=== PATIENT | male | born 1965 | race Caucasian/White ===

== ENCOUNTER 2021-01-13 06:01 | Emergency (ER) | payer BC ==
--- OUTSIDE RECORDS SUMMARY | 2021-01-13 06:05 | XMS REPORT | Continuity of Care Document ---
:[address] [facility] t Address [address] [place] [address] Care Team Providers Name Role Phone BALDO Attending Clinician Unavailable Payers Payer Name Policy Type Policy Number Effective Date Expiration Date S logan [facility] [id number] 2020 00:00:00 Problems This patient has no known problems. Allergies, Adverse Reactions, Alerts This patient has no known allergies or adverse reactions. Medications This patient has no known medications. Procedures This patient has no known procedures. Encounters Start End Encounter Admission Attending Care Care Encounter Source Date/Time Date/Time Type Type Clinicians Facility Department ID 2020-12-01 Outpatient [facility] [id number] [place] 10:27:13 [facility] 2020-11-14 Outpatient [facility] [id number] [place] 09:58:18 [facility] 2020-12-16 2020-12-16 Education RAFIA Davis [id number] 08:53:53 08:54:10 [facility] [id number] [facility] [id number] SPECIALTY [id number] CLINIC 5 2020-12-09 2020-12-09 Outpatient [id number] [facility] 07:52:00 07:52:00 [facility] 2020-11-23 2020-11-23 Office RAFIA Davis [id number] 10:52:49 12:14:06 Visit [facility] [id number] CLINIC [id number] Results This patient has no known results.
[2021-01-13] MEDS ORDERED: ACETAMINOPHEN 500 MG TAB ONE (06:46)
[2021-01-13 06:54] LABS: Absolute Lymphocytes (CBC) 1.4 K/uL (0.7-4.9); Basophils % 0.3 % (0-1.3); Hematocrit 36.5 % (39.6-49.0); Lymphocytes % 7.2 % (15.3-44.8); MPV 7.8 fL (7.6-11.3); RBC Red Blood Cell Count 4.35 M/uL (4.33-5.43)
[2021-01-13] MEDS ORDERED: NA CHLORIDE 0.9% 1,000 ML ONE (06:57)
[2021-01-13 07:01] LABS: Potassium 4.1 mmol/L (3.5-5.1)
--- NOTE | 2021-01-13 07:31 | RAD REPORT ---
EXAM DESCRIPTION: CT - Spine Lumbar Wo Con - 01/13/2021 7:06 am CLINICAL HISTORY: LOWER BACK PAIN COMPARISON: None. TECHNIQUE: Thin section axial imaging of the lumbar spine was performed. Sagittal and coronal recon struction images were generated and reviewed. All CT scans are performed using dose optimization technique as appropriate and may include automated exposure control or mA/KV adjustment according to patient size. FINDINGS: Lumbar vertebral bodies are normal in height and AP alignment. No compression fracture or pathologic bone process identifiable. Multilevel anterior and lateral endplate spurring changes are p resent. Mild facet joint degenerative changes are present. There are no pars defects identified. No paraspinal soft tissue mass. SI joint degenerative changes are mild. Central canal detail is inherently limited. No gross evidence for a large central canal disc herniati on or mass lesion. Disc bulge and endplate spurring changes cause foraminal stenosis at L3-4, L4-5 an d L5-S1. IMPRESSION: Bilateral foraminal stenosis from disc bulge and endplate spurring involving L3-4, L4-5 and L5-S1. Central canal detail is inherently limited. No gross evidence for large disc herniation or mass. No compression fracture or pathologic bone process. Endplate spurring and facet joint degenerative ch anges are present.
--- NOTE | 2021-01-13 08:01 | RAD REPORT ---
EXAM DESCRIPTION: MRI - Lumbar Spine Wo Con - 01/13/2021 7:39 am CLINICAL HISTORY: incontinence;Lower back pain COMPARISON: No comparisons TECHNIQUE: Sagittal T1-weighted, T2-weighted and T2-STIR weighted sequences were obtained. Axial T1 -weighted and heavily T2-weighted sequenceswere obtained through the lumbar disc levels. FINDINGS: Lumbar bodies are normal in height and alignment. No suspicious marrow signal. No paraspi nal masses. Conus is normal with no clumping or thickening of the cauda equina. T12-L1 level: No significant findings. L1-2 level: No significant findings. L2-3 level: Early disc desiccation and minimal facet degenerative change. No central canal or foramen abnormality. L3-4 level: Disc desiccation with bulging of disc material across the central canal and into each exi t foramen. Bulging disc material causes minimal flattening of the thecal sac. Midline central canal d iameter is 13 mm. Disc bulge and endplate spurring changes are present causing mild to moderate bilat eral foraminal stenosis. Perineural fat is still present. Mild ligamentous thickening and mild facet degenerative change. L4-5 level: Disc desiccation without loss in height. No central canal herniation or significant disc bulge. Foraminal disc bulge and endplate spurring changes are present causing mild to moderate forami nal stenosis. Perineural fat is still present. Facet joint degenerative changes are present. L5-S1 level: Disc is desiccated. No herniation or significant disc bulge in the central canal. Forami nal disc bulge and endplate spurring changes are present causing mild to moderate foraminal stenosis. Facet joint degenerative changes mild. No significant ligamentous thickening changes identifiable. IMPRESSION: No acute vertebral body finding. Degenerative disc bulge and endplate spurring changes at the lower 3 disc levels show [id number] e foraminal stenoses. Findings are slightly worse to the left. L3-4 central canal disc bulge present without central spinal stenosis.
[2021-01-13 08:15] LABS: Urine Blood Negative (Negative); Urine Glucose 2+ (Negative); Urine Protein 2+ (Negative); Urine pH 5.5 (5.0-7.0)
[2021-01-13 08:44] LABS: Urine Bacteria 20-50 /HPF (NONE SEEN); Urine RBC NONE SEEN /HPF (NONE SEEN)
--- NOTE | 2021-01-13 10:56 | RAD REPORT ---
EXAM DESCRIPTION: RAD - Chest Pa And Lat (2 Views) - 01/13/2021 9:20 am CLINICAL HISTORY: COUGH COMPARISON: August 04, 2020 TECHNIQUE: Frontal and lateral views of the chest were obtained. FINDINGS: The lungs are clear of peripheral mass, consolidation or failure finding. Interstitial pat tern is not clearly different from comparison. Heart size is normal and central vasculature is with in normal limits. No pleural effusion or pneumothorax seen. No acute bony finding noted. No aortic abnormality. IMPRESSION: No acute cardiopulmonary process. No significant change from comparison study.
--- NOTE | 2021-01-13 11:07 | EDPHYS ---
Physician Documentation [facility] Name: Napoleon Saez Age: 55 yrs Sex: Male : 1965 Arrival Date: 01/13/2021 Time: 06:05 Bed 28 Private MD: ED Physician Hay Cheng HPI: 01/13 16:27 This 55 yrs old Male presents to ER via Ambulatory with complaints of Low kb Back Pain, Urinary Incontinence. 16:27 The patient presents with pain that is acute, with no known mechanism of injury. The kb symptoms are located in the lumbar spine. The pain does not radiate. The problem was sustained without known cause. Onset: The symptoms/episode began/occurred this morning. Modifying factors: The patient symptoms are alleviated by nothing, the patient symptoms are aggravated by any movement. Associated signs and symptoms: Pertinent positives: bladder incontinence. Severity of symptoms: At their worst the symptoms were moderate, in the emergency department the symptoms are unchanged. The patient has not experienced similar symptoms in the past. The patient has not recently seen a physician. Patient reports bilateral knee and hip pain for the past few days. 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 Yesterday on the way home from work he had an episode of incontinence, then had another episode at 10 PM and 2 AM bladder incontinence. Had a bowel movement at 10 PM knowing continence of bowel. Patient ambulatory with steady gait. States he woke up this morning with pain to lumbar spine. No radiation of pain. Denies any trauma or injury.. Historical: - Allergies: 06:18 No Known Allergies; em - PMHx: 06:18 Hypertensive disorder; Diabetes mellitus; Crohn's disease; em - PSHx: 06:18 None; em - Immunization history:: Adult Immunizations up to date. - Social history:: Smoking status: Patient denies any tobacco usage or history of. ROS: 06:19 Constitutional: Negative for fever, chills, and weight loss. kb 06:19 Abdomen/GI: Negative for abdominal pain, bowel incontinence. 06:19 Back: Positive for pain at rest, pain with movement, of the lumbar area. 06:19 : Positive for bladder incontinence 06:19 All other systems are negative. Exam: 07:55 Constitutional: This is a well developed, well nourished patient who is awake, alert, kb and in no acute distress. Head/Face: Normocephalic, atraumatic. ENT: Moist Mucous membranes Respiratory: Respirations even and unlabored. No increased work of breathing, no retractions or nasal flaring. Abdomen/GI: Soft, non-tender. No distention Skin: Warm, dry with normal turgor. Normal color. MS/ Extremity: Pulses equal, no cyanosis. Neurovascular intact. Full, normal range of motion. Neuro: Awake and alert, GCS 15, oriented to person, place, time, and situation. Moves all extremities. Normal gait. Psych: Awake, alert, with orientation to person, place and time. Behavior, mood, and affect are within normal limits. 07:55 Back: pain, that is moderate, of the lumbar area, ROM is normal, normal spinal alignment noted. Vital Signs: 06:16 BP 171 / 88; Pulse 131; Resp 22; Temp 100.2; Pulse Ox 95% on R/A; Weight 163.29 kg; em Height 5 ft. 11 in. (180.34 cm); 09:36 BP 145 / 74; Pulse 108; Resp 16; Temp 97.7(O); Pulse Ox 96% on R/A; dh3 11:38 BP 157 / 72; Pulse 103; Resp 17; Pulse Ox 96% ; ll1 06:16 Body Mass Index 50.21 (163.29 kg, 180.34 cm) em MDM: 06:19 Patient medically screened. kb 06:25 Data reviewed: vital signs, nurses notes. Data interpreted: Pulse oximetry: on room air kb is 95 %. Interpretation: normal. 16:29 Counseling: I had a detailed discussion with the patient and/or guardian regarding: the kb historical points, exam findings, and any diagnostic results supporting the discharge/admit diagnosis, lab results, radiology results, the need for outpatient follow up, a family practitioner, to return to the emergency department if symptoms worsen or persist or if there are any questions or concerns that arise at home. ED course: Patient recently treated for a leg infection with IV antibiotics at home and to oral antibiotics. Patient is on the last few days of those antibiotics.. 01/13 06:26 Order name: CBC with Diff; Complete Time: 07:10 kb 01/13 06:26 Order name: Basic Metabolic Panel; Complete Time: 07:10 kb 01/13 06:26 Order name: Blood Culture Adult (2) kb 01/13 06:26 Order name: Urine Culture kb 01/13 06:26 Order name: Urine Microscopic Only; Complete Time: 08:45 kb 01/13 06:26 Order name: CT Lumbar Spine Wo Con; Complete Time: 07:31 kb 01/13 06:50 Order name: MRI Lumbar Spine wo Con; Complete Time: 08:05 kb 01/13 07:33 Order name: SARS-COV-2 RT PCR; Complete Time: 07:35 EDMS 01/13 08:15 Order name: Urine Dipstick-Ancillary EDMS 01/13 08:45 Order name: Chest Pa And Lat (2 Views) XRAY; Complete Time: 11:05 kb 01/13 06:26 Order name: IV Start; Complete Time: 06:44 kb 01/13 06:26 Order name: Urine Dipstick-Ancillary (obtain specimen); Complete Time: 08:17 kb 01/13 09:03 Order name: Vital Signs; Complete Time: 11:16 kb Administered Medications: 06:32 Drug: Tylenol 1000 mg Route: PO; em 11:06 Follow up: Response: No adverse reaction ll1 06:43 Drug: NS 0.9% 1000 ml Route: IV; Rate: 1000 ml; Site: left forearm; em 11:05 Follow up: Response: No adverse reaction; IV Status: Completed infusion; IV Intake: ll1 1000ml 11:16 Drug: Rocephin (cefTRIAXone) 1 grams Route: IV; Rate: calculated rate; Site: left ll1 forearm; 11:40 Follow up: Response: No adverse reaction; IV Status: Completed infusion; IV Intake: [id number] Disposition Summary: 01/13/21 11:06 Discharge Ordered Location: Home kb Condition: Stable kb Diagnosis - Low back pain kb - UTI/ Urinary tract infection, site not specified kb Followup: kb - With: Emergency Department - When: As needed - Reason: Worsening of condition Followup: kb - With: Private Physician - When: 2 - 3 days - Reason: Recheck today's complaints, Continuance of care, Re-evaluation by your physician Discharge Instructions: - Discharge Summary Sheet kb - Musculoskeletal Pain kb - Urinary Tract Infection, Adult, [id number] kb Forms: - Medication Reconciliation Form kb - Thank You Letter kb - Antibiotic Education kb - Prescription Opioid Use kb Prescriptions: - Cipro 500 mg Oral Tablet - take 1 tablet by ORAL route every 12 hours for 7 days; 14 tablet; Refills: 0, kb Product Selection Permitted - Diclofenac Sodium 75 mg Oral tablet,delayed release (DR/EC) - take 1 tablet by ORAL route 2 times per day As needed; 30 tablet; Refills: 0, kb Product Selection Permitted Addendum: 01/15/2021 09:10 Co-signature as Attending Physician, Hay Cheng I agree with the assessment and plan s p3 of care. Signatures: Dispatcher [employer] [facility] Camille Fish, SOLUTION ENGINEER-C SOLUTION ENGINEER-Israel Oshea, RN RN Bobby Arellano RN RN ll1 Hay Cheng sp3 Corrections: (The following items were deleted from the chart) 01/13 06:41 06:27 CORONAVIRUS+[email or web address] ordered. [facility]
--- NOTE | 2021-01-13 11:07 | ER ---
Nurse's Notes [facility] Name: Napoleon Saez Age: 55 yrs Sex: Male : 1965 Arrival Date: 01/13/2021 Time: 06:05 Bed 28 Private MD: Diagnosis: Low back pain;UTI/ Urinary tract infection, site not specified Presentation: 01/13 06:16 Chief complaint: Patient states: woke up with back pain at 0300, hip and thierry. knee em pain, denies injury, also lost control of bladder 3 times. Coronavirus screen: Client denies travel out of the [place] in the last 14 days. Ebola Screen: Patient negative for fever greater than or equal to 101.5 degrees Fahrenheit, and additional compatible Ebola Virus Disease symptoms Patient denies exposure to infectious person. Patient denies travel to an Ebola-affected area in the 21 days before illness onset. No symptoms or risks identified at this time. Initial Sepsis Screen: Does the patient meet any 2 criteria? RR > 20 per min. HR > 90 bpm. No. Patient's initial sepsis screen is negative. Does the patient have a suspected source of infection? No. Patient's initial sepsis screen is negative. Risk Assessment: Do you want to hurt yourself or someone else? Patient reports no desire to harm self or others. Onset of symptoms was January 13, 2021. 06:16 Method Of Arrival: Ambulatory em 06:16 Acuity: MONICA 3 em 06:19 Acuity: MONICA 2 em Historical: - Allergies: 06:18 No Known Allergies; em - PMHx: 06:18 Hypertensive disorder; Diabetes mellitus; Crohn's disease; em - PSHx: 06:18 None; em - Immunization history:: Adult Immunizations up to date. - Social history:: Smoking status: Patient denies any tobacco usage or history of. Screenin:39 Abuse screen: Denies threats or abuse. Nutritional screening: No deficits noted. ll1 Tuberculosis screening: No symptoms or risk factors identified. Fall Risk IV access (20 points). Gait- Weak (10 pts.). Total Bocanegra Fall Scale indicates Low Risk Score (25-44 pts). Fall prevention measures have been instituted. Side Rails Up X 2 Frequent Obs/Assesments occuring As available Patient and Family Educated on Fall Prevention Program and strategies. Assessment: 11:20 General: Appears in no apparent distress. Behavior is calm, cooperative, appropriate ll1 for age. Pain: Complains of pain in lumbar area Quality of pain is described as aching, Aggravated by increased activity. Neuro: No deficits noted. Cardiovascular: No deficits noted. Respiratory: No deficits noted. : Reports burning with urination, incontinence, urgency. Musculoskeletal: Circulation, motion, and sensation intact. Capillary refill < 3 seconds, Range of motion: intact in all extremities, Reports pain in lumbar area. Vital Signs: 06:16 BP 171 / 88; Pulse 131; Resp 22; Temp 100.2; Pulse Ox 95% on R/A; Weight 163.29 kg; em Height 5 ft. 11 in. (180.34 cm); 09:36 BP 145 / 74; Pulse 108; Resp 16; Temp 97.7(O); Pulse Ox 96% on R/A; dh3 11:38 BP 157 / 72; Pulse 103; Resp 17; Pulse Ox 96% ; ll1 06:16 Body Mass Index 50.21 (163.29 kg, 180.34 cm) em ED Course: 06:05 Patient arrived in ED. wm 06:11 [facility]aimlle [facility]C [facility] kb 06:11 Hay Cheng is Attending Physician. kb 06:18 Triage completed. em 06:18 Arm band placed on. em 07:06 CT Lumbar Spine Wo Con In Process Unspecified. EDMS 07:38 MRI Lumbar Spine wo Con In Process Unspecified. EDMS 09:19 Chest Pa And Lat (2 Views) XRAY In Process Unspecified. EDMS 11:05 Bobby Figueredo, RN is Primary Nurse. ll1 11:20 Patient has correct armband on for positive identification. Bed in low position. Call ll1 light in reach. Side rails up X2. Pulse ox on. NIBP on. 11:39 No provider procedures requiring assistance completed. IV discontinued, intact, ll1 bleeding controlled, No redness/swelling at site. Pressure dressing applied. Administered Medications: 06:32 Drug: Tylenol 1000 mg Route: PO; em 11:06 Follow up: Response: No adverse reaction ll1 06:43 Drug: NS 0.9% 1000 ml Route: IV; Rate: 1000 ml; Site: left forearm; em 11:05 Follow up: Response: No adverse reaction; IV Status: Completed infusion; IV Intake: ll1 1000ml 11:16 Drug: Rocephin (cefTRIAXone) 1 grams Route: IV; Rate: calculated rate; Site: left ll1 forearm; 11:40 Follow up: Response: No adverse reaction; IV Status: Completed infusion; IV Intake: [id number] Intake: 11:05 IV: 1000ml; Total: 1000ml. ll1 11:40 IV: 20ml; Total: 1020ml. 1 Outcome: 11:06 Discharge ordered by . santosh 11:40 Discharged to home ambulatory. 1 11:40 Condition: stable 11:40 Discharge instructions given to patient, Instructed on discharge instructions, follow up and referral plans. medication usage, Demonstrated understanding of instructions, follow-up care, medications, Prescriptions given X 1. 11:41 Patient left the ED. 1 Signatures: Dispatcher [employer] EDCamille Esquivel, LISA-C TECHNOLOGY PROGRAM MANAGER-Israel Oshea RN RN em Herrera, Deanna formerly [facility] Bobby Figueredo RN RN [facility] Shruthi Quintero
[2021-01-13] MEDS ORDERED: CEFTRIAXONE/SWI 1gm 1 GM/10 ML SYR ONE (11:32)
[2021-01-13 11:48] VITALS: TEMP 97.7; O2SAT 96
[2021-01-13 11:49] VITALS: BP 157/72
== END 2021-01-13 11:41 | disposition home or self-care (01) ==
LOC: ER 06:01
DX: N39.0 Urinary tract infection, site not specified (principal); I10 Essential (primary) hypertension; E11.9 Type 2 diabetes mellitus without complications; Z20.822 Contact with and (suspected) exposure to COVID-19
CPT/HCPCS: 96365; 96361; 87040 ×2; 87088; 85025; 87086; 80048; 36415; 87077; 87186; 72131; 71046; 72148; 99284; U0003; J0696; J7030; 81003; 81015

== ENCOUNTER 2021-02-21 19:33 | Emergency (ER) | payer BC ==
[2021-02-21 20:46] LABS: Absolute Lymphocytes (CBC) 1.7 K/uL (0.7-4.9); Basophils % 0.6 % (0-1.3); Hematocrit 36.3 % (39.6-49.0); Lymphocytes % 15.3 % (15.3-44.8); MPV 8.1 fL (7.6-11.3); RBC Red Blood Cell Count 4.31 M/uL (4.33-5.43)
[2021-02-21 20:50] LABS: Protime INR 1.08
[2021-02-21 21:03] LABS: ALT/SGPT 34 U/L (12-78); AST/SGOT 15 U/L (15-37); Albumin 3.7 g/dL (3.4-5.0); Alkaline Phosphatase 71 U/L (45-117); BUN Blood Urea Nitrogen 25 mg/dL (7-18); Bicarbonate 29 mmol/L (21-32); Bilirubin Direct < 0.1 mg/dL (0-0.2); Bilirubin Total 0.3 mg/dL (0.2-1.0); Glucose Level 224 mg/dL (74-106); Potassium 4.1 mmol/L (3.5-5.1); Protein, Total 7.2 g/dL (6.4-8.2); Sodium Level 138 mmol/L (136-145)
[2021-02-21] MEDS ORDERED: ACETAMINOPHEN 500 MG TAB ONE (21:19)
--- NOTE | 2021-02-21 21:37 | RAD REPORT ---
EXAM DESCRIPTION: Ramon Macario Left02/21/2021 9:28 pm CLINICAL HISTORY: Left leg pain FINDINGS: No fracture is seen. Soft tissue swelling. No bony destructive lesions seen
--- NOTE | 2021-02-21 21:56 | RAD REPORT ---
EXAM DESCRIPTION: USExtremity Venous Uni Ltd02/21/2021 9:44 pm CLINICAL HISTORY: left leg pain . COMPARISON: December 2020 FINDINGS: Left common femoral, superficial femoral, popliteal and posterior tibial veins are compre ssible and demonstrate augmentation. Doppler demonstrates good flow. IMPRESSION: No evidence of deep venous thrombosis involving the left lower extremity.
--- NOTE | 2021-02-21 22:11 | EDPHYS ---
Physician Documentation [facility] Name: Napoleon Saez Age: 55 yrs Sex: Male : 1965 Arrival Date: 02/21/2021 Time: 19:38 Bed 9 Private MD: JLUIS Physician Magdi Kenny HPI: 02/21 20:20 This 55 yrs old Male presents to ER via Ambulatory with complaints of Leg mh7 Pain. 20:20 The patient presents with pain, that is acute. The complaints affect the left leg. mh7 Context: The problem was sustained at work, resulted from an unknown cause, the patient can fully bear weight, the patient is able to ambulate, without difficulty, Problem is a result from a previous injury: No. Onset: The symptoms/episode began/occurred today. Modifying factors: The symptoms are alleviated by nothing. the symptoms are aggravated by nothing. Associated signs and symptoms: Pertinent negatives calf tenderness, fever, nausea, numbness, rash, swelling, tingling, vomiting, warmth, weakness. Treatment prior to arrival includes: no previous treatment. Severity of symptoms: At their worst the symptoms were moderate, earlier today, in the emergency department the symptoms have improved, moderately. Patient reports pain is started in her left lower leg earlier today. He denies any injuries. He reports being treated for infection in the leg that was completed about a month ago. He has not noted any change in the skin to the area. Denies any fever, cough, chest pain, abdominal pain, shortness of breath, nausea, vomiting, diarrhea, dizziness, numbness/tingling, or weakness.. Historical: - Allergies: 19:51 No Known Allergies; ms4 - PMHx: 19:51 Crohn's Disease; diabetes mellitus; Hypertensive disorder; ms4 - Immunization history:: Adult Immunizations up to date, Client reports receiving the 2nd dose of the Covid vaccine. - Social history:: Smoking status: Patient denies any tobacco usage or history of. ROS: 20:20 Constitutional: Negative for fever, chills, and weight loss, Eyes: Negative for injury, mh7 pain, redness, and discharge, ENT: Negative for injury, pain, and discharge, Neck: Negative for injury, pain, and swelling, Cardiovascular: Negative for chest pain, palpitations, and edema, Respiratory: Negative for shortness of breath, cough, wheezing, and pleuritic chest pain, Abdomen/GI: Negative for abdominal pain, nausea, vomiting, diarrhea, and constipation, Back: Negative for injury and pain, : Negative for injury, bleeding, discharge, and swelling, Skin: Negative for injury, rash, and discoloration, Neuro: Negative for headache, weakness, numbness, tingling, and seizure, Psych: Negative for depression, anxiety, suicide ideation, homicidal ideation, and hallucinations, Allergy/Immunology: Negative for hives, rash, and allergies, Endocrine: Negative for neck swelling, polydipsia, polyuria, polyphagia, and marked weight changes. Exam: 20:20 Constitutional: This is a well developed, well nourished patient who is awake, alert, mh7 and in no acute distress. Head/Face: Normocephalic, atraumatic. Eyes: Pupils equal round and reactive to light, extra-ocular motions intact. Lids and lashes normal. Conjunctiva and sclera are non-icteric and not injected. Cornea within normal limits. Periorbital areas with no swelling, redness, or edema. Neck: Trachea midline, no thyromegaly or masses palpated, and no cervical lymphadenopathy. Supple, full range of motion without nuchal rigidity, or vertebral point tenderness. No Meningismus. Chest/axilla: Normal chest wall appearance and motion. Nontender with no deformity. No lesions are appreciated. Cardiovascular: Regular rate and rhythm with a normal S1 and S2. No gallops, murmurs, or rubs. Normal PMI, no JVD. No pulse deficits. Respiratory: Lungs have equal breath sounds bilaterally, clear to auscultation and percussion. No rales, rhonchi or wheezes noted. No increased work of breathing, no retractions or nasal flaring. Abdomen/GI: Soft, non-tender, with normal bowel sounds. No distension or tympany. No guarding or rebound. No evidence of tenderness throughout. Back: No spinal tenderness. No costovertebral tenderness. Full range of motion. Neuro: Awake and alert, GCS 15, oriented to person, place, time, and situation. Cranial nerves II-XII grossly intact. Motor strength 5/5 in all extremities. Sensory grossly intact. Cerebellar exam normal. Normal gait. Psych: Awake, alert, with orientation to person, place and time. Behavior, mood, and affect are within normal limits. 20:20 Musculoskeletal/extremity: Extremities: noted in the Anterior left lower leg: pain, mh7 Mild, healing wound without erythema, swelling, discharge, induration, warmth, ROM: intact in all extremities, Circulation is intact in all extremities. Sensation intact. Compartment Syndrome exam of affected extremity: is normal. no numbness, no tingling, no sensation deficit, no palor, no weak pulses, Joints: All joints appear normal with full range of motion. Weight bearing: able to fully bear weight, without difficulty, Tendon exam: specific tendon testing normal through active and passive range of motion 20:20 Skin: Wound recheck: Healing wound anterior left lower leg without erythema, mh7 tenderness, swelling, induration, discharge, warmth. Vital Signs: 19:48 BP 162 / 105; Pulse 109; Resp 20; Temp 98.7(O); Pulse Ox 97% on R/A; Weight 163.29 kg; ms4 Height 5 ft. 11 in. (180.34 cm) (R); Pain 3/10; 19:48 Body Mass Index 50.21 (163.29 kg, 180.34 cm) ms4 MDM: 22:09 Differential diagnosis: closed fracture, contusion, abrasion, tendonitis, Cellulitis. mh7 Data reviewed: vital signs, nurses notes, EMS record, old medical records, lab test result(s), CBC, electrolytes, radiologic studies, plain films, ultrasound. Data interpreted: Pulse oximetry: on room air is 97 %. Interpretation: normal. Counseling: I had a detailed discussion with the patient and/or guardian regarding: the historical points, exam findings, and any diagnostic results supporting the discharge/admit diagnosis, the presence of at least one elevated blood pressure reading (>120/80) during this emergency department visit, lab results, radiology results, the need for outpatient follow up, to return to the emergency department if symptoms worsen or persist or if there are any questions or concerns that arise at home. Response to treatment: the patient's symptoms have resolved after treatment, the patient's blood pressure is in an acceptable range, mental status has returned to baseline, the patient no longer shows bradycardia, the patient is not short of breath, the patient is not tachycardic, the patient's pain is gone, the patient's temperature has normalized. 22:11 Patient medically screened. [facility] 02/21 20:28 Order name: CBC with Diff; Complete Time: 21:17 [facility] 02/21 20:28 Order name: BMP; Complete Time: 21:17 [facility] 02/21 20:28 Order name: LFT's; Complete Time: 21:17 [facility] 02/21 20:28 Order name: Protime (+inr); Complete Time: 21:17 [facility] 02/21 20:28 Order name: Ptt, Activated; Complete Time: 21:17 [facility] 02/21 20:28 Order name: US Extremity Venous Unilateral Ltd; Complete Time: 21:58 [facility] 02/21 20:28 Order name: Saline Lock; Complete Time: 20:39 [facility] 02/21 20:43 Order name: Tib Fib Left XRAY; Complete Time: 21:58 [facility] Administered Medications: 20:55 Drug: Tylenol 1000 mg Route: PO; ms4 Disposition Summary: 02/21/21 22:11 Discharge Ordered Location: Home [facility] Problem: new [facility] Symptoms: have improved [facility] Condition: Stable [facility] Diagnosis - Pain in left lower leg [facility] Followup: [facility] - With: Private Physician - When: 1 - 2 days - Reason: Worsening of condition, Recheck today's complaints, Continuance of care, Re-evaluation by your physician Followup: [facility] - With: Emergency Department - When: 1 - 2 days - Reason: Worsening of condition Discharge Instructions: - Discharge Summary Sheet [facility] - Musculoskeletal Pain [facility] Forms: - Medication Reconciliation Form [facility] - Thank You Letter [facility] - Antibiotic Education [facility] - Prescription Opioid Use [facility] Signatures: Dispatcher [employer] Magdi Jung MD MD [facility] Felicitas Mendez, RN RN ms4
--- NOTE | 2021-02-21 22:11 | ER ---
Nurse's Notes [facility] Name: Napoleon Saez Age: 55 yrs Sex: Male : 1965 Arrival Date: 02/21/2021 Time: 19:38 Bed 9 Private MD: Diagnosis: Pain in left lower leg Presentation: 02/21 19:48 Chief complaint: Patient states: patient presents to the ED c/o left leg pain. patient ms4 reports he had a recent leg infection and was placed on multiple antibiotics and had to have the wound debrided. patient is here tonight due to increased pain in the area. LLE appears to be healing. patient denies fever or chills. Coronavirus screen: Vaccine status: Patient reports receiving the 2nd dose of the covid vaccine. Client denies travel out of the [place] in the last 14 days. At this time, the client does not indicate any symptoms associated with coronavirus-19. Ebola Screen: Patient negative for fever greater than or equal to 101.5 degrees Fahrenheit, and additional compatible Ebola Virus Disease symptoms Patient denies exposure to infectious person. Patient denies travel to an Ebola-affected area in the 21 days before illness onset. No symptoms or risks identified at this time. Initial Sepsis Screen: Does the patient meet any 2 criteria? HR > 90 bpm. Does the patient have a suspected source of infection? Yes: Skin breakdown/wound If YES to both, name of provider notified: Magdi Kenny MD. Risk Assessment: Do you want to hurt yourself or someone else? Patient reports no desire to harm self or others. Onset of symptoms was February 21, 2021. 19:48 Method Of Arrival: Ambulatory ms4 19:48 Acuity: MONICA 3 ms4 Triage Assessment: 19:52 General: Appears in no apparent distress. Behavior is calm, cooperative, appropriate ms4 for age. Pain: Complains of pain in left leg. Historical: - Allergies: 19:51 No Known Allergies; ms4 - PMHx: 19:51 Crohn's Disease; diabetes mellitus; Hypertensive disorder; ms4 - Immunization history:: Adult Immunizations up to date, Client reports receiving the 2nd dose of the Covid vaccine. - Social history:: Smoking status: Patient denies any tobacco usage or history of. Screenin:57 Abuse screen: Denies threats or abuse. Denies injuries from another. Abuse screen: ms4 Denies injuries from another. Abuse screen: Denies injuries from another. Nutritional screening: No deficits noted. Tuberculosis screening: No symptoms or risk factors identified. Fall Risk None identified. Assessment: 19:56 Reassessment: Patient appears in no apparent distress at this time. No changes from ms4 previously documented assessment. Patient and/or family updated on plan of care and expected duration. Pain level reassessed. Patient is alert, oriented x 3, equal unlabored respirations, skin warm/dry/pink. General: Appears in no apparent distress. Behavior is calm, cooperative, appropriate for age. Pain: Complains of pain in left leg. Neuro: No deficits noted. Cardiovascular: No deficits noted. Respiratory: No deficits noted. Musculoskeletal: Swelling present in right leg and left leg Reports pain in left leg Pain is 3 out of 10 on a pain scale. 21:32 Reassessment: ultrasound at bedside. ms4 Vital Signs: 19:48 BP 162 / 105; Pulse 109; Resp 20; Temp 98.7(O); Pulse Ox 97% on R/A; Weight 163.29 kg; ms4 Height 5 ft. 11 in. (180.34 cm) (R); Pain 3/10; 19:48 Body Mass Index 50.21 (163.29 kg, 180.34 cm) ms4 ED Course: 19:38 Patient arrived in ED. bp1 19:51 Triage completed. ms4 19:52 Arm band placed on right wrist. ms4 19:57 No provider procedures requiring assistance completed. ms4 19:59 Gwendolyn Woodson, JULIÁN is Primary Nurse. cc4 20:12 Magdi Kenny MD is Attending Physician. mh7 20:40 Patient has correct armband on for positive identification. ms4 20:40 Inserted saline lock: 20 gauge in right hand, using aseptic technique. Blood collected. ms4 21:28 Tib Fib Left XRAY In Process Unspecified. EDMS 21:44 US Extremity Venous Unilateral Ltd In Process Unspecified. EDMS 22:18 IV discontinued, intact, bleeding controlled. ms4 Administered Medications: 20:55 Drug: Tylenol 1000 mg Route: PO; ms4 Outcome: 22:11 Discharge ordered by . mh7 22:18 Discharged to home ambulatory. ms4 22:18 Condition: stable 22:18 Discharge instructions given to patient, Instructed on discharge instructions, follow up and referral plans. Demonstrated understanding of instructions, follow-up care. 22:19 Patient left the ED. ms4 Signatures: Dispatcher [employer] EDMS Zita Pena Maurice, MD MD mh7 Felicitas Mendez RN RN ms4 Gwendolyn Woodson RN RN cc4
[2021-02-21 22:26] VITALS: BP 162/105; TEMP 98.7; O2SAT 97
== END 2021-02-21 22:19 | disposition home or self-care (01) ==
LOC: ER 19:33
DX: M79.662 Pain in left lower leg (principal); I10 Essential (primary) hypertension
CPT/HCPCS: 36415; 80048; 80076; 85025; 85610; 85730; 93971; 99284

== ENCOUNTER 2023-04-04 09:35 | Emergency (ER) | payer BC ==
--- OUTSIDE RECORDS SUMMARY | 2023-04-04 09:38 | XMS REPORT | Continuity of Care Document ---
:1965 Author Organization [facility] t Address [address] [place] [address] [place] [id number] Care Team Providers Name Role Phone ESTEBAN LEWIS Primary Care Physician Unavailable SYLVIA HILL Attending Clinician Unavailable Sylvia Miller Attending Clinician Jada Monae MD Attending Clinician JADA MONAE Attending Clinician Unavailable Doctor Unassigned, [place] Attending Clinician Unavailable Karri Bland MD Attending Clinician KARRI BLAND Attending Clinician Unavailable ERIC AGUDELO Attending Clinician Unavailable JADA MONAE Admitting Clinician Unavailable Payers Payer Name Policy Type Policy Number Effective Date Expiration Date S ource Problems Condition Condition Condition Status Onset Resolution Last Treating Co mments Source Name Details Category Date Date Treatment Clinician Date Chronic Chronic Disease Active Univers venous venous 6-30 ity of [place] [facility] Bilateral Bilateral Disease Active Uni vers leg leg 6-29 ity of numbness numbness 00:00: [place] [facility] Diabetes Diabetes Disease Active 2008-05 Overview: Un jozef 1-13 Formattin ity of 00:00: g of this note Medical might be Branch different from the original. Dx 2004 Essential Essential Disease Active 2008-05 Overview: Univers hypertensi hypertensi 1-13 Formattin ity of on on 00:00: g of this note Medical might be Branch different from the original. Dx 2005ICD-1 0 Obesity Obesity Disease Active 2008-05 Univers 1-13 ity of 00:00: [place] [address] Medical Branch Allergies, Adverse Reactions, Alerts Allergy Allergy Status Severity Reaction(s) Onset Inactive Treating Comm ents Source Name Type Date Date Clinician NO KNOWN Drug Active Univers ALLERGIE Class ity of S [facility] Social History Social Habit Start Date Stop Date Quantity Comments Source Gender identity [facility] [place] [facility] [place] [facility] Alcohol intake 2023-03-07 2023-03-07 Lifetime University of 00:00:00 00:00:00 non-drinker [facility] (finding) [place] Tobacco use and 2023-02-18 2023-02-18 Smokeless Universit y of exposure 00:00:00 00:00:00 tobacco non-user [facility] dical [place] History of Social 2023-02-18 2023-02-18 Univers ity of function 00:00:00 00:00:00 [facility] Sex [birth year] Universit y of 00:00:00 00:00:00 [facility] Smoking Status Start Date Stop Date Source Tobacco smoking consumption Univ [facility] Never smoked tobacco [facility] Medications Ordered Filled Start Stop Current Ordering Indication Dosage Frequency Signature Comments Components Source Medication Medication Date Date Medication? Clinician (SIG) Name Name ciprofloxac 2022-05- Yes [id number] 500mg Take 1 Univers in HCl 0-02 10-13 tablet by ity of (CIPRO) 500 [place] 04[place] tablet 00 :00 every 12 Medica l (twelve) Branch hours for 10 days. ciprofloxac 2022-05- Yes [id number] 500mg Take 1 Univers in HCl 0-02 10-13 tablet by ity of (CIPRO) 500 00:00: 04:59 [place] tablet 00 :00 every 12 Medica l (twelve) Branch hours for 10 days. ciprofloxac 2022-05- Yes [id number] 500mg Take 1 Univers in HCl 0-02 10-13 tablet by ity of (CIPRO) 500 00:00: 04:59 [place] mg tablet 00 :00 every 12 Medica l (twelve) Branch hours for 10 days. ciprofloxac 2022-05- Yes [id number] 500mg Take 1 Univers in HCl 0-02 10-13 tablet by ity of (CIPRO) 500 00:00: 04:59 [place] mg tablet 00 :00 every 12 Medica l (twelve) Branch hours for 10 days. lisinopriL 0 Yes Take by Univ ers 40 mg 9-25 mouth. ity of tablet 16:05: [address] lisinopriL 0 Yes Take by Univ ers 40 mg 9-25 mouth. ity of tablet 16:05: [address] lisinopriL 0 Yes Take by Univ ers 40 mg 9-25 mouth. ity of tablet 16:05: [address] lisinopriL 0 Yes Take by Univ ers 40 mg 9-25 mouth. ity of tablet 16:05: [address] lisinopriL Yes Take by [facility] ers 40 mg 9-25 mouth. ity of tablet 16:05: [address] triamcinolo 0 Yes [id number] Apply to Univers ne 9-25 area(s) 2 ity of acetonide 00:00: (two) [place] 0.1 % 00 times Medical ointment daily. Branch mupirocin 2 0 Yes [id number] Apply to Univers % ointment 9-25 area(s) 2 ity of 00:00: (two) [place] 00 times Medical daily. Branch furosemide 0 Yes [id number] 20mg Take 1 U nivers (LASIX) 20 9-25 tablet by ity of mg tablet 00:00: [place] 00 the Medical morning. Branch triamcinolo 0 Yes [id number] Apply to Univers ne 9-25 area(s) 2 ity of acetonide 00:00: (two) [place] 0.1 % 00 times Medical ointment daily. Branch mupirocin 2 0 Yes [id number] Apply to Univers % ointment 9-25 area(s) 2 ity of 00:00: (two) [place] 00 times Medical daily. Branch furosemide 0 Yes [id number] 20mg Take 1 U nivers (LASIX) 20 9-25 tablet by ity of mg tablet 00:00: [place] 00 the Medical morning. Branch triamcinolo 2022-0 Yes [id number] Apply to Univers ne 9-25 area(s) 2 ity of acetonide 00:00: (two) [place] 0.1 % 00 times Medical ointment daily. Branch mupirocin 2 2022-0 Yes [id number] Apply to Univers % ointment 9-25 area(s) 2 ity of 00:00: (two) [place] 00 times Medical daily. Branch furosemide 2022-0 Yes [id number] 20mg Take 1 U nivers (LASIX) 20 9-25 tablet by ity of mg tablet 00:00: [place] the Medical morning. Branch triamcinolo 2022-0 Yes [id number] Apply to Univers ne 9-25 area(s) 2 ity of acetonide 00:00: (two) [place] 0.1 % 00 times Medical ointment daily. Branch mupirocin 2 2022-0 Yes [id number] Apply to Univers % ointment 9-25 area(s) 2 ity of 00:00: (two) [place] 00 times Medical daily. Branch furosemide 2022-0 Yes [id number] 20mg Take 1 U nivers (LASIX) 20 9-25 tablet by ity of mg tablet 00:00: [place] the Medical morning. Branch triamcinolo 2022-0 Yes [id number] Apply to Univers ne 9-25 area(s) 2 ity of acetonide 00:00: (two) [place] 0.1 % 00 times Medical ointment daily. Branch mupirocin 2 2022-0 Yes [id number] Apply to Univers % ointment 9-25 area(s) 2 ity of 00:00: (two) [place] 00 times Medical daily. Branch furosemide 2022-0 Yes [id number] 20mg Take 1 U nivers (LASIX) 20 9-25 tablet by ity of mg tablet 00:00: [place] the Medical morning. Branch lisinopriL 2022-0 Yes 40mg Take 1 Unive rs 40 mg 9-10 tablet by ity of tablet 00:00: mouth in [place] 00 the Medical morning. Branch amLODIPine 2022-0 Yes TAKE 1 Unive rs 10 mg 9-10 TABLET BY ity of tablet 00:00: MOUTH [place] 00 EVERY DAY Medical FOR 90 Branch DAYS lisinopriL 3-0 Yes 40mg Take 1 Unive rs 40 mg 9-10 tablet by ity of tablet 00:00: mouth in [place] 00 the Medical morning. Branch amLODIPine 2022-0 Yes TAKE 1 Unive rs 10 mg 9-10 TABLET BY ity of tablet 00:00: MOUTH [place] 00 EVERY DAY Medical FOR 90 Branch DAYS lisinopriL 2022-0 Yes 40mg Take 1 Unive rs 40 mg 9-10 tablet by ity of tablet 00:00: mouth in [place] 00 the Medical morning. Branch amLODIPine 2022-0 Yes TAKE 1 Unive rs 10 mg 9-10 TABLET BY ity of tablet 00:00: MOUTH [place] 00 EVERY DAY Medical FOR 90 Branch DAYS lisinopriL 2022-0 Yes 40mg Take 1 Unive rs 40 mg 9-10 tablet by ity of tablet 00:00: mouth in [place] 00 the Medical morning. Branch amLODIPine 2022-0 Yes TAKE 1 Unive rs 10 mg 9-10 TABLET BY ity of tablet 00:00: MOUTH [place] 00 EVERY DAY Medical FOR 90 Branch DAYS lisinopriL 2022-0 Yes 40mg Take 1 Unive rs 40 mg 9-10 tablet by ity of tablet 00:00: mouth in [place] 00 the Medical morning. Branch amLODIPine 2022-0 Yes TAKE 1 Unive rs 10 mg 9-10 TABLET BY ity of tablet 00:00: MOUTH [place] 00 EVERY DAY Medical FOR 90 Branch DAYS JANUMET 0 Yes TAKE 1 Univers 50-1,000 mg 9-02 TABLET BY ity of per tablet 00:00: MOUTH [place] 00 TWICE A Medical DAY WITH Branch MEALS FOR 90 DAYS JANUMET 0 Yes TAKE 1 Univers 50-1,000 mg 9-02 TABLET BY ity of per tablet 00:00: MOUTH [place] 00 TWICE A Medical DAY WITH Branch MEALS FOR 90 DAYS JANUMET 0 Yes TAKE 1 Univers 50-1,000 mg 9-02 TABLET BY ity of per tablet 00:00: MOUTH [place] 00 TWICE A Medical DAY WITH Branch MEALS FOR 90 DAYS JANUMET 0 Yes TAKE 1 Univers 50-1,000 mg 9-02 TABLET BY ity of per tablet 00:00: MOUTH [place] 00 TWICE A Medical DAY WITH Branch MEALS FOR 90 DAYS JANUMET 0 Yes TAKE 1 Univers 50-1,000 mg 9-02 TABLET BY ity of per tablet 00:00: MOUTH [place] 00 TWICE A Medical DAY WITH Branch MEALS FOR 90 DAYS mesalamine 2023-0 Yes 1000mg Take 2 Uni vers 500 mg CR 8-12 capsules ity of capsule 00:00: by mouth [place] 00 in the Medical morning Branch and 2 capsules in the evening. mesalamine 2023-0 Yes 1000mg Take 2 Uni vers 500 mg CR 8-12 capsules ity of capsule 00:00: by mouth [place] 00 in the Medical morning Branch and 2 capsules in the evening. mesalamine 2023-0 Yes 1000mg Take 2 Uni vers 500 mg CR 8-12 capsules ity of capsule 00:00: by mouth [place] 00 in the Medical morning Branch and 2 capsules in the evening. mesalamine 2023-0 Yes 1000mg Take 2 Uni vers 500 mg CR 8-12 capsules ity of capsule 00:00: by mouth [place] 00 in the Medical morning Branch and 2 capsules in the evening. mesalamine 2023-0 Yes 1000mg Take 2 Uni vers 500 mg CR 8-12 capsules ity of capsule 00:00: by mouth [place] 00 in the Medical morning Branch and 2 capsules in the evening. methylPREDN 2020-0 Yes [place] ISolone 6-24 Health (Medrol 00:00: Dospak) 4 00 MG tablets methylPREDN 2020-0 Yes [place] ISolone 6-24 Health (Medrol 00:00: Dospak) 4 00 MG tablets methylPREDN 2020-0 Yes [facility] ISolone 6-24 Health (Medrol 00:00: Dospak) 4 00 MG tablets lisinopril 2020-0 Yes [facility] 40 MG 6-21 Health tablet 00:00: 00 Janumet 2020-0 Yes [facility] 50-1000 MG 6-21 Health tablet 00:00: 00 amLODIPine 2020-0 Yes [facility] (Norvasc) 6-21 Health 10 MG 00:00: tablet 00 amLODIPine 2020-0 Yes [place] (Norvasc) 6-21 Health 10 MG 00:00: tablet 00 lisinopril 1-0 Yes [facility] 40 MG 6-21 Health tablet 00:00: 00 Janumet 2020-0 Yes [facility] 50-1000 MG 6-21 Health tablet 00:00: 00 amLODIPine 2021-0 Yes [facility] (Norvasc) 6-21 Health 10 MG 00:00: tablet 00 lisinopril Yes [facility] 40 MG - Health tablet 00:00: 00 Janumet Yes [facility] 50-1000 MG - Health tablet 00:00: 00 Ozempic, Yes INJECT [facility] 0.25 or 0.5 6-16 0.25MG Health MG/DOSE, 2 00:00: SUBCUTANEO MG/1.5ML 00 USLY ONCE solution EVERY WEEK pen-injecto r cholestyram Yes [facility] ine 6-16 Health (Questran) 00:00: 4 g packet 00 cholestyram Yes [place] ine 6-16 Health (Questran) 00:00: 4 g packet 00 Ozempic, Yes INJECT UT 0.25 or 0.5 6-16 0.25MG Health MG/DOSE, 2 00:00: SUBCUTANEO MG/1.5ML 00 USLY ONCE solution EVERY WEEK pen-injecto r cholestyram Yes UT ine 6-16 Health (Questran) 00:00: 4 g packet 00 Ozempic, Yes INJECT UT 0.25 or 0.5 6-16 0.25MG Health MG/DOSE, 2 00:00: SUBCUTANEO MG/1.5ML 00 USLY ONCE solution EVERY WEEK pen-injecto r Pentasa 500 Yes TAKE 4 UT MG ER 4-23 CAPSULES Health capsule 00:00: BY MOUTH 00 TWICE A DAY Pentasa 500 Yes TAKE 4 UT MG ER 4-23 CAPSULES Health capsule 00:00: BY MOUTH 00 TWICE A DAY Pentasa 500 0 Yes TAKE 4 UT MG ER 4-23 CAPSULES Health capsule 00:00: BY MOUTH 00 TWICE A DAY Vital Signs Vital Name Observation Time Observation Value Comments Source Systolic blood 2023-03-07 21:22:00 158 mm[Hg] Univer sity of pressure [facility] Diastolic blood 2023-03-07 21:22:00 84 mm[Hg] Unive rsity of [facility] Heart rate 2023-03-07 21:22:00 98 /min [facility] Body temperature 2023-03-07 21:22:00 35.83 Susy [facility] ersity of [facility] Respiratory rate 2023-03-07 21:22:00 18 /min [facility] ersity of [place] [facility] [place] Body weight 2023-03-07 21:22:00 159.213 kg Universi ty [facility] [place] [facility] [place] BMI 2023-03-07 21:22:00 48.95 kg/m2 Universi ty of [facility] Oxygen saturation in 2023-03-07 21:22:00 98 /min University of Arterial blood by [facility] Pulse oximetry Branch Systolic blood 2023-02-18 20:52:00 174 mm[Hg] Univer sity of pressure [facility] Diastolic blood 2023-02-18 20:52:00 91 mm[Hg] Unive rsity of [facility] Heart rate 2023-02-18 20:52:00 93 /min Universi ty of [facility] Body temperature 2023-02-18 20:52:00 36.67 Susy [facility] 2023-02-18 20:52:00 22 /min [facility] Body height 2023-02-18 20:52:00 180.3 cm [facility]i ty [facility] [place] [facility] [place] Body weight 2023-02-18 20:52:00 158.124 kg [facility]i ty [facility] [place] [facility] [place] BMI 2023-02-18 20:52:00 48.62 kg/m2 Universi ty of [facility] Oxygen saturation in 2023-02-18 20:52:00 97 /min University of Arterial blood by [facility] Pulse oximetry Branch Procedures Procedure Date / Time Performed Performing Clinician Sour e WOUND/ASPIRATE OR 2023-02-19 13:26:00 Sylvia Hill [facility] ABSCESS CULTURE [facility] WOUND CULTURE 2023-02-19 13:26:00 Liz Sylvia Pepperell o f [facility] ASSIGNMENT OF BENEFITS 2023-02-18 20:24:03 Doctor Unassigned, No [facility] Name Medical Branch REFERRAL- 2023-02-05 05:01:00 Doctor Unassigned, No [facility] REQUEST/RESPONSE Name Medical [place] US EXT LOWER VENOUS 2020-12-09 14:00:00 Karri Bland [facility] DOPPLER BILAT US LAVELL-STRESS LOWER 2020-12-09 13:20:00 Karri Bland [facility] h EXTREMITY ARTERY COMPLETE BILATERAL Encounters Start End Encounter Admission Attending Care Care Encounter Source Date/Time Date/Time Type Type Clinicians Facility Department ID 2023-03-07 2023-03-07 Office Sylvia Hill [facility] [id number] Univers 16:30:00 17:00:00 Visit SPECIALTY [id number] ity of [place]2.7.2.[place] [id number] [facility] [address] [place] 2023-03-07 2023-03-07 Outpatient R LIZ SYLVIA [facility] [id number] Univers 16:30:00 16:30:00 ity of [facility] 2023-02-19 2023-02-19 [facility] Letha STEFANIEGLORIAJIMI [id number] Univers 10:37:00 23:59:00 Encounter Jada Ca 350.1.13.[address] [facility] 4.2.7.2.686 [place] [id number] [facility] 031 Branch 2023-02-19 2023-02-19 Outpatient [facility] [id number] Univers 00:00:00 23:59:00 JADA ity of [facility] 2023-02-18 2023-02-18 Office LizSylvia [facility] [id number] Univers 15:30:00 16:00:00 Visit SPECIALTY 350.1.13.10 ity of [place] 4.2.7.2.686 [facility] [place] [place] [id number] [facility] [address] [place] 2023-02-18 2023-02-18 Outpatient R LIZ SYLVIA [facility] [id number] Univers 15:30:00 15:30:00 ity of [facility] 2023-02-18 2023-02-18 Orders Doctor MENJIVAR [id number] Univers 00:00:00 00:00:00 Only Unassigned, ARLINE 350.1.13.10 ity of [place] [facility] 4.2.7.2.686 [place] [id number] [facility] 009 Branch 2023-02-05 2023-02-05 Orders Doctor MENJIVAR [id number] Univers 00:00:00 00:00:00 Only Unassigned, ARLINE 350.1.13.10 ity of [place] [facility] 4.2.7.2.686 [place] [id number] [address] 2021-05-31 2021-05-31 Outpatient [facility] [id number] Univers 10:30:00 10:30:00 [id number] ity of [facility] 2020-12-16 2020-12-16 Education RAFIA Bland [id number] [place] 08:53:53 08:54:10 Karri PATRICK 350.1.13.58 H ealth MULTI 9.2.7.2.686 SPECIALTY [id number] CLINIC 5 2020-12-16 2020-12-16 Education RAFIA Bland [id number] 08:53:53 08:54:10 Karri PATRICK 350.1.13.58 MULTI 9.2.7.2.686 SPECIALTY [id number] CLINIC 5 2020-12-09 2020-12-09 Outpatient VINITA BLAND MHSE [id number] 07:52:00 23:59:00 KARRI griffith [facility] 2020-12-01 2020-12-01 EXT MHH OP TATYANA Bland MSRDP [id number] [place] 00:00:00 00:00:00 Karri TOLBERT 350.1.13.58 H ealth 9.2.7.2.686 [id number] 2020-11-23 2020-11-23 Office RAFIA Bland [id number] [place] 10:52:49 12:14:06 Visit Karri GIL 350.1.13.58 He alth CLINIC 9.2.7.2.686 [id number] 2 2020-11-23 2020-11-23 Office RAFIA Bland [id number] 10:52:49 12:14:06 Visit Karri GIL 350.1.13.58 CLINIC 9.2.7.2.686 [id number] 2 2020-06-24 2020-06-24 Outpatient Jb AGUDELO [facility] [id number] Univers 15:00:00 15:00:00 ERIC archuleta [facility] Results This patient has no known results.
[2023-04-04 10:11] LABS: Specific Gravity 1.022 (1.005-1.030); Urine Bacteria None Seen /HPF (<20); Urine Bilirubin NEGATIVE (Negative); Urine Blood Negative (Negative); Urine Clarity Clear (Clear); Urine Color Light-Yellow (Yellow); Urine Glucose 4+ (Over) (Negative); Urine Mucus Slight /HPF (None Seen); Urine Protein 1+ (Negative); Urine RBC <5 /HPF (None Seen); Urine Urobilinogen Normal (Normal); Urine pH 5.5 (5.0-7.0)
[2023-04-04 11:00] LABS: Absolute Lymphocytes (CBC) 1.4 K/uL (0.7-4.9); Hematocrit 34.6 % (39.6-49.0); Lymphocytes % 17.8 % (15.3-44.8); MCV 83.8 fL (80-100); MPV 8.3 fL (7.6-11.3); Platelets 299 thou/uL (152-406); RBC Red Blood Cell Count 4.13 M/uL (4.33-5.43)
[2023-04-04 11:49] LABS: Albumin 3.2 g/dL (3.4-5.0); Bilirubin Total 0.2 mg/dL (0.2-1.0); Potassium 4.4 mEq/L (3.5-5.1)
[2023-04-04] MEDS ORDERED: INSULIN REGULAR (HUMAN) 100 UNIT/ML ONE (12:27)
[2023-04-04] MEDS ORDERED: NA CHLORIDE 0.9% 1,000 ML ONE (12:27)
--- NOTE | 2023-04-04 13:51 | EDPHYS ---
Physician Documentation [facility] Name: Napoleon Saez Age: 57 yrs Sex: Male : 1965 Arrival Date: 04/04/2023 Time: 09:35 Bed 11 Private MD: ED Physician Hay Cheng HPI: 04/04 10:38 This 57 yrs old Male presents to ER via Ambulatory with complaints of Urinary Frequency.jr8 10:38 Onset: The symptoms/episode began/occurred gradually, 5 day(s) ago. Associated signs jr8 and symptoms: Pertinent positives: Incontinence. Modifying factors: The patient symptoms are alleviated by nothing, the patient symptoms are aggravated by Urination. The patient has experienced a previous episode. The patient has not recently seen a physician. 57-year-old male presented to the emergency room with urinary frequency incontinence for the past 4 to 5 days. History of urinary tract infections in the past. Also known diabetic. Denies fevers, abdominal pain, body aches or chills. Historical: - Allergies: 09:58 No Known Allergies; iw - PMHx: 09:56 Crohn's Disease; diabetes mellitus; Hypertensive disorder; iw - Immunization history:: Adult Immunizations up to date. - Social history:: Smoking status: Patient denies any tobacco usage or history of. ROS: 10:38 Eyes: Negative for injury, pain, redness, and discharge, ENT: Negative for injury, jr8 pain, and discharge, Neck: Negative for injury, pain, and swelling, Cardiovascular: Negative for chest pain, palpitations, and edema, Respiratory: Negative for shortness of breath, cough, wheezing, and pleuritic chest pain, Abdomen/GI: Negative for abdominal pain, nausea, vomiting, diarrhea, and constipation, Back: Negative for injury and pain, MS/Extremity: Negative for injury and deformity, Skin: Negative for injury, rash, and discoloration, Neuro: Negative for headache, weakness, numbness, tingling, and seizure, 10:38 : Positive for urinary symptoms, urinary frequency, Exam: 10:38 Constitutional: This is a well developed, well nourished patient who is awake, alert, jr8 and in no acute distress. Eyes: Pupils equal round and reactive to light, extra-ocular motions intact. Lids and lashes normal. Conjunctiva and sclera are non-icteric and not injected. Cornea within normal limits. Periorbital areas with no swelling, redness, or edema. Cardiovascular: Tachycardic with a normal S1 and S2. No gallops, murmurs, or rubs. Normal PMI, no JVD. No pulse deficits. Respiratory: Lungs have equal breath sounds bilaterally, clear to auscultation and percussion. No rales, rhonchi or wheezes noted. No increased work of breathing, no retractions or nasal flaring. Abdomen/GI: Soft, non-tender, with normal bowel sounds. No distension or tympany. No guarding or rebound. No evidence of tenderness throughout. Back: No spinal tenderness. No costovertebral tenderness. Full range of motion. Skin: Warm, dry with normal turgor. Normal color with no rashes, no lesions, and no evidence of cellulitis. MS/ Extremity: Pulses equal, no cyanosis. Neurovascular intact. Full, normal range of motion. Neuro: Awake and alert, GCS 15, oriented to person, place, time, and situation. Motor strength 5/5 in all extremities. Sensory grossly intact. Normal gait. Vital Signs: 09:54 BP 183 / 92; Pulse 104; Resp 18; Temp 99; Pulse Ox 98% on R/A; Weight 158.76 kg; Height iw 5 ft. 11 in. ; 12:28 BP 177 / 88; Pulse 89; Resp 16; Pulse Ox 100% on R/A; iw 14:16 BP 168 / 95; Pulse 90; Resp 18; Pulse Ox 97% on R/A; me1 09:54 Body Mass Index 48.81 (158.76 kg, 180.34 cm) iw MDM: 09:45 Patient medically screened. 8 13:49 Data reviewed: vital signs, nurses notes, lab test result(s), and as a result, I will jr8 discharge patient. Consideration of Admission/Observation Escalation of care including admission/observation considered. I considered the following discharge prescriptions or medication management in the emergency department Medications were administered in the Emergency Department. See MAR. Counseling: I had a detailed discussion with the patient and/or guardian regarding the historical points, exam findings, and any diagnostic results supporting the discharge/admit diagnosis, lab results, the need for outpatient follow up, a family practitioner, to return to the emergency department if symptoms worsen or persist or if there are any questions or concerns that arise at home. Response to treatment: the patient's symptoms have markedly improved after treatment, patient is well hydrated. and as a result, I will discharge patient. ED course: Patient feeling much better, hemodynamically stable. Had a long discussion with him about tighter glucose control as this is the direct reason for his frequency and most likely has incontinence as well unless he has underlying prostate issues. Recommended that he see his primary care for reevaluation of his glucose control along with PSA. If he were to worsen or have change in symptoms in between now and then to immediately come back to the emergency room for further evaluation. Patient understood all information given to him and and is good with plan at this time.. 04/04 09:45 Order name: Urinalysis w/ reflexes; Complete Time: 10:16 8 04/04 10:17 Order name: CBC with Diff; Complete Time: 11:01 8 04/04 10:17 Order name: CMP; Complete Time: 11:57 [facility] 04/04 13:46 Order name: Glucose, Ancillary Testing; Complete Time: 13:51 EDMS 04/04 10:17 Order name: IV Saline Lock; Complete Time: 10:59 8 04/04 10:17 Order name: Labs collected and sent; Complete Time: 10:59 8 04/04 10:17 Order name: Glucose Level; Complete Time: 12:20 8 04/04 11:05 Order name: Labs - recollect needed: LT GREEN; Complete Time: 11:12 bc6 Administered Medications: 12:20 Drug: Insulin Regular Human IVP 10 units IVP once {Co-Signature: me1 (ole Winn RN).} Route: IVP; Site: right hand; 14:20 Follow up: Response: No adverse reaction me1 12:26 Drug: NS 0.9% IV 1000 ml IV at 1 bolus Per protocol; 1000 mL bolus Route: IV; Rate: 1 iw bolus; Site: right hand; 14:20 Follow up: IV Status: Completed infusion me1 Point of Care Testing: Blood Glucose: 13:34 Blood Glucose: 274 mg/dL; me1 Ranges: Critical Glucose Levels:Adult <50 mg/dl or >400 mg/dl <40 mg/dl or >180 mg/dl Disposition Summary: 04/04/23 13:50 Discharge Ordered Notes: Location: Home jr8 Problem: new jr8 Symptoms: have improved jr8 Condition: Stable jr8 Diagnosis - Type 2 diabetes mellitus with hyperglycemia jr8 Followup: jr8 - With: Private Physician - When: 1 - 2 days - Reason: Recheck today's complaints, Continuance of care, Re-evaluation by your physician Discharge Instructions: - Discharge Summary Sheet jr8 - Hyperglycemia jr8 Forms: - Medication Reconciliation Form jr8 - Thank You Letter jr8 - Antibiotic Education jr8 - Prescription Opioid Use jr8 - Patient Portal Instructions jr8 - Leadership Thank You Letter jr8 Signatures: Dispatcher [employer] Tracy Murray RN RN Sinan Murillo PA PA jr8 Freda Cruz 6 Lorie Winn RN RN me1 Lorie Winn RN me1
--- NOTE | 2023-04-04 13:51 | ER ---
Nurse's Notes [facility] Name: Napoleon Saez Age: 57 yrs Sex: Male : 1965 Arrival Date: 04/04/2023 Time: 09:35 Bed 11 Private MD: Diagnosis: Type 2 diabetes mellitus with hyperglycemia Presentation: 04/04 09:54 Chief complaint: Patient states: UTI symptoms X 4-5 days, is having some mild iw incontinence. Coronavirus screen: At this time, the client does not indicate any symptoms associated with coronavirus-19. Ebola Screen: Patient negative for fever greater than or equal to 101.5 degrees Fahrenheit, and additional compatible Ebola Virus Disease symptoms Patient denies exposure to infectious person. Patient denies travel to an Ebola-affected area in the 21 days before illness onset. No symptoms or risks identified at this time. Initial Sepsis Screen: Does the patient meet any 2 criteria? No. Patient's initial sepsis screen is negative. Does the patient have a suspected source of infection? No. Patient's initial sepsis screen is negative. Risk Assessment: Do you want to hurt yourself or someone else? Patient reports no desire to harm self or others. Onset of symptoms was March 31, 2023. 09:54 Method Of Arrival: Ambulatory iw 09:54 Acuity: MONICA 3 iw Triage Assessment: 14:19 General: Appears. General: Behavior is calm, cooperative, appropriate for age. Pain: me1 Denies pain. Historical: - Allergies: 09:58 No Known Allergies; iw - PMHx: 09:56 Crohn's Disease; diabetes mellitus; Hypertensive disorder; iw - Immunization history:: Adult Immunizations up to date. - Social history:: Smoking status: Patient denies any tobacco usage or history of. Screenin:15 [facility] ED Fall Risk Assessment (Adult) History of falling in the last 3 months, me1 including since admission No falls in past 3 months (0 pts) Confusion or Disorientation Intoxicated or Sedated No (0 pts) Impaired Gait No (0 pts) Mobility Assist Device Used No (0 pt) Altered Elimination No (0 pt) Score/Fall Risk Level 0 - 2 = Low Risk Oriented to surroundings, Maintained a safe environment, Provided non-skid footwear, Hourly rounding (assess needs \T\ fall precautionary measures) done. Abuse screen: Denies threats or abuse. Nutritional screening: No deficits noted. Tuberculosis screening: No symptoms or risk factors identified. Assessment: 12:15 Reassessment: No changes from previously documented assessment. me1 12:28 Reassessment: Patient appears in no apparent distress at this time. Patient and/or iw family updated on plan of care and expected duration. Pain level reassessed. Patient is alert, oriented x 3, equal unlabored respirations, skin warm/dry/pink. Vital Signs: 09:54 BP 183 / 92; Pulse 104; Resp 18; Temp 99; Pulse Ox 98% on R/A; Weight 158.76 kg; Height iw 5 ft. 11 in. ; 12:28 BP 177 / 88; Pulse 89; Resp 16; Pulse Ox 100% on R/A; iw 14:16 BP 168 / 95; Pulse 90; Resp 18; Pulse Ox 97% on R/A; me1 09:54 Body Mass Index 48.81 (158.76 kg, 180.34 cm) ED Course: 09:37 Patient arrived in ED. rg4 09:40 Sinan Murillo PA is PHCP. jr8 09:40 Hay Cheng MD is Attending Physician. jr8 09:56 Triage completed. iw 09:56 Arm band placed on. iw 09:58 Tracy Paul, RN is Primary Nurse. iw 09:59 Urinalysis w/ reflexes Sent. iw 11:12 CMP Sent. iw 12:15 Patient has correct armband on for positive identification. Bed in low position. Call me1 light in reach. Side rails up X 1. Provided Education on: POC. Verbalized understanding.. 12:15 No provider procedures requiring assistance completed. Flushed right forearm. me1 14:19 IV discontinued, intact, bleeding controlled, No redness/swelling at site. Pressure me1 dressing applied. Administered Medications: 12:20 Drug: Insulin Regular Human IVP 10 units IVP once {Co-Signature: 1 (ole Winn RN).} Route: IVP; Site: right hand; 14:20 Follow up: Response: No adverse reaction me1 12:26 Drug: NS 0.9% IV 1000 ml IV at 1 bolus Per protocol; 1000 mL bolus Route: IV; Rate: 1 iw bolus; Site: right hand; 14:20 Follow up: IV Status: Completed infusion me1 Medication: 12:15 VIS not applicable for this client. me1 Point of Care Testing: Blood Glucose: 13:34 Blood Glucose: 274 mg/dL; me1 Ranges: Outcome: 13:50 Discharge ordered by MD. kim 14:19 Discharged to home ambulatory, with significant other, me1 14:19 Condition: stable 14:19 Discharge instructions given to patient, significant other, Instructed on discharge instructions, follow up and referral plans. Demonstrated understanding of instructions, follow-up care, 14:19 Patient left the ED. me1 Signatures: Tracy Paul, RN RN Sinan Murillo PA PA jr8 Carissa White 4 Lorie Winn RN RN me1 Lorie Winn RN me1 Corrections: (The following items were deleted from the chart) 09:58 09:54 BP 183 / 92; Pulse 104bpm; Resp 18bpm; Pulse Ox 98% RA; iw iw
[2023-04-04 14:41] VITALS: TEMP 99
[2023-04-04 14:44] VITALS: BP 168/95; O2SAT 97
== END 2023-04-04 14:19 | disposition home or self-care (01) ==
LOC: ER 09:35
DX: E11.65 Type 2 diabetes mellitus with hyperglycemia (principal); R35.0 Frequency of micturition; I10 Essential (primary) hypertension
CPT/HCPCS: 96361; 85025; 81001; 36415; 82947; 80053; 96374; 99284; J1815; J7030

== ENCOUNTER → 2023-07-12 | Emergency (ER) | payer BC ==
[~2023-07-12] MED LIST: CLINDAMYCIN 600MG/D5W 50 ML IV ONE; MUPIROCIN 2% OINT 22GM TUBE TOP ONE; NA CHLORIDE 0.9% 1,000 ML ONE
--- OUTSIDE RECORDS SUMMARY | 2023-07-12 00:36 | XMS REPORT | Continuity of Care Document ---
Author Name Unknown Address [address] [place] [address] [facility] Address [address] [place] [address] Care Team Providers Care Tile Grinder Name Role Phone ESTEBAN LEWIS Primary Care Physician SYLVIA Reynoso Attending Clinician Unavailable Sylvia Miller Attending Clinician Frankie Monae MD Attending Clinician FRANKIE MONAE Attending Clinician Unavailabl e Doctor Unassigned, [place] Attending Clinician U Karri Espinosa MD Attending Clinician EIRC AGUDELO Attending Clinician Unavailable FRANKIE MONAE Admitting Clinician Unavailabl e Payers Payer Name Policy Type Policy Number Effective Date Expirati on Date Source Problems Condition Name Condition Details Condition Category Status Onset Date Resolution Date Last Treatment Date Treating Clinician Comments Source Chronic venous insufficie ncy Chronic venous insufficie ncy Disease Active 11-23 00:00: 00 [facility] Bilateral leg numbness Bilateral leg numbness Disease Active 11-22 00:00: 00 [facility] Diabetes Diabetes Disease Active 2008-05 00:00: 00 Overview: Formattin g of this note might be different from the original. Dx 2004 [facility] Essential hypertensi on Essential hypertensi on Disease Active 2008-05 00:00: 00 Overview: Formattin g of this note might be different from the original. Dx 2005ICD-1 0 [facility] Obesity Obesity Disease Active 2008-05 00:00: 00 [facility] Allergies, Adverse Reactions, Alerts Allergy Name Allergy Type Status Severity Reaction(s) Onset Date Inactive Date Treating Clinician Comments Source NO KNOWN ALLERGIE S Drug Class Active [facility] Social History Social Habit Start Date Stop Date Quantity Comments Source Gender identity [facility] 2023-03-07 00:00:00 2023-03-07 00:00:00 Lifetime non-drinker (finding) [facility] Tobacco use and exposure 2023-02-18 00:00:00 2023-02-18 00:00:00 Smokeless tobacco non-user [facility] History of Social function 2023-02-18 00:00:00 2023-02-18 00:00:00 [facility] Sex Assigned At 1965 00:00:00 1965 00:00:00 [facility] Smoking Status Start Date Stop Date Source Tobacco smoking consumption unknown [facility] Never smoked tobacco [facility] Medications Ordered Medication Name Filled Medication Name Start Date Stop Date Current Medication? Ordering Clinician Indication Dosage Frequency Signature (SIG) Comments Components Source ciprofloxac in HCl (CIPRO) 500 mg tablet 2022-05 00:00: 00 03-08 04:59 :00 No [id number] 500mg Take 1 tablet by mouth every 12 (twelve) hours for 10 days. [facility] ciprofloxac in HCl (CIPRO) 500 mg tablet 2022-05 0 00:00: 00 03-08 04:59 :00 No [id number] 500mg Take 1 tablet by mouth every 12 (twelve) hours for 10 days. [facility] ciprofloxac in HCl (CIPRO) 500 mg tablet 2022-05 0 00:00: 00 03-08 04:59 :00 No [id number] 500mg Take 1 tablet by mouth every 12 (twelve) hours for 10 days. [facility] ciprofloxac in HCl (CIPRO) 500 mg tablet 2022-05 0 00:00: 00 03-08 04:59 :00 No [id number] 500mg Take 1 tablet by mouth every 12 (twelve) hours for 10 days. [facility] lisinopriL 40 mg tablet 02-18 16:05: 35 Yes Take by mouth. [facility] lisinopriL 40 mg tablet 02-18 16:05: 35 Yes Take by mouth. [facility] lisinopriL 40 mg tablet 02-18 16:05: 35 Yes Take by mouth. [facility] lisinopriL 40 mg tablet 02-18 16:05: 35 Yes Take by mouth. [facility] lisinopriL 40 mg tablet 02-18 16:05: 35 Yes Take by mouth. [facility] triamcinolo ne acetonide 0.1 % ointment 02-18 00:00: 00 Yes [id number] Apply to area(s) 2 (two) times daily. [facility] mupirocin 2 % ointment 02-18 00:00: 00 Yes [id number] Apply to area(s) 2 (two) times daily. [facility] furosemide (LASIX) 20 mg tablet 02-18 00:00: 00 Yes [id number] 20mg Take 1 tablet by mouth in the morning. [facility] triamcinolo ne acetonide 0.1 % ointment 02-18 00:00: 00 Yes [id number] Apply to area(s) 2 (two) times daily. [facility] mupirocin 2 % ointment 02-18 00:00: 00 Yes [id number] Apply to area(s) 2 (two) times daily. [facility] furosemide (LASIX) 20 mg tablet 02-18 00:00: 00 Yes [id number] 20mg Take 1 tablet by mouth in the morning. [facility] triamcinolo ne acetonide 0.1 % ointment 02-18 00:00: 00 Yes [id number] Apply to area(s) 2 (two) times daily. [facility] mupirocin 2 % ointment 0 02-18 00:00: 00 Yes [id number] Apply to area(s) 2 (two) times daily. [facility] furosemide (LASIX) 20 mg tablet 0 02-18 00:00: 00 Yes [id number] 20mg Take 1 tablet by mouth in the morning. [facility] triamcinolo ne acetonide 0.1 % ointment 0 02-18 00:00: 00 Yes [id number] Apply to area(s) 2 (two) times daily. [facility] mupirocin 2 % ointment 0 02-18 00:00: 00 Yes [id number] Apply to area(s) 2 (two) times daily. [facility] furosemide (LASIX) 20 mg tablet 0 02-18 00:00: 00 Yes [id number] 20mg Take 1 tablet by mouth in the morning. [facility] triamcinolo ne acetonide 0.1 % ointment 02-18 00:00: 00 Yes [id number] Apply to area(s) 2 (two) times daily. [facility] mupirocin 2 % ointment 0 02-18 00:00: 00 Yes [id number] Apply to area(s) 2 (two) times daily. [facility] furosemide (LASIX) 20 mg tablet 0 02-18 00:00: 00 Yes [id number] 20mg Take 1 tablet by mouth in the morning. [facility] lisinopriL 40 mg tablet 2022-0 02-03 00:00: 00 Yes 40mg Take 1 tablet by mouth in the morning. [facility] amLODIPine 10 mg tablet 2022-0 02-03 00:00: 00 Yes TAKE 1 TABLET BY MOUTH EVERY DAY FOR 90 DAYS [facility] lisinopriL 40 mg tablet 2022-0 10 00:00: 00 Yes 40mg Take 1 tablet by mouth in the morning. [facility] amLODIPine 10 mg tablet 0 02-03 00:00: 00 Yes TAKE 1 TABLET BY MOUTH EVERY DAY FOR 90 DAYS [facility] lisinopriL 40 mg tablet 0 02-03 00:00: 00 Yes 40mg Take 1 tablet by mouth in the morning. [facility] amLODIPine 10 mg tablet 0 02-03 00:00: 00 Yes TAKE 1 TABLET BY MOUTH EVERY DAY FOR 90 DAYS [facility] lisinopriL 40 mg tablet 0 02-03 00:00: 00 Yes 40mg Take 1 tablet by mouth in the morning. [facility] amLODIPine 10 mg tablet 0 02-03 00:00: 00 Yes TAKE 1 TABLET BY MOUTH EVERY DAY FOR 90 DAYS [facility] lisinopriL 40 mg tablet 0 02-03 00:00: 00 Yes 40mg Take 1 tablet by mouth in the morning. [facility] amLODIPine 10 mg tablet 0 02-03 00:00: 00 Yes TAKE 1 TABLET BY MOUTH EVERY DAY FOR 90 DAYS [facility] JANUMET 50-1,000 mg per tablet 0 01-26 00:00: 00 Yes TAKE 1 TABLET BY MOUTH TWICE A DAY WITH MEALS FOR 90 DAYS [facility] JANUMET 50-1,000 mg per tablet 0 01-26 00:00: 00 Yes TAKE 1 TABLET BY MOUTH TWICE A DAY WITH MEALS FOR 90 DAYS [facility] JANUMET 50-1,000 mg per tablet 2022-0 01-26 00:00: 00 Yes TAKE 1 TABLET BY MOUTH TWICE A DAY WITH MEALS FOR 90 DAYS [facility] JANUMET 50-1,000 mg per tablet 0 01-26 00:00: 00 Yes TAKE 1 TABLET BY MOUTH TWICE A DAY WITH MEALS FOR 90 DAYS [facility] JANUMET 50-1,000 mg per tablet 0 01-26 00:00: 00 Yes TAKE 1 TABLET BY MOUTH TWICE A DAY WITH MEALS FOR 90 DAYS [facility] mesalamine 500 mg CR capsule 2022-0 8-12 00:00: 00 Yes 1000mg Take 2 capsules by mouth in the morning and 2 capsules in the evening. [facility] mesalamine 500 mg CR capsule 12 00:00: 00 Yes 1000mg Take 2 capsules by mouth in the morning and 2 capsules in the evening. [facility] mesalamine 500 mg CR capsule 01-05 00:00: 00 Yes 1000mg Take 2 capsules by mouth in the morning and 2 capsules in the evening. [facility] mesalamine 500 mg CR capsule 01-05 00:00: 00 Yes 1000mg Take 2 capsules by mouth in the morning and 2 capsules in the evening. [facility] mesalamine 500 mg CR capsule 01-05 00:00: 00 Yes 1000mg Take 2 capsules by mouth in the morning and 2 capsules in the evening. [facility] methylPREDN ISolone (Medrol Dospak) 4 MG tablets 11-17 00:00: 00 Yes [facility] methylPREDN ISolone (Medrol Dospak) 4 MG tablets 11-17 00:00: 00 Yes [facility] methylPREDN ISolone (Medrol Dospak) 4 MG tablets 11-17 00:00: 00 Yes [facility] amLODIPine (Norvasc) 10 MG tablet 11-14 00:00: 00 Yes [facility] lisinopril 40 MG tablet 11-14 00:00: 00 Yes [facility] Janumet 50-1000 MG tablet 11-14 00:00: 00 Yes [facility] amLODIPine (Norvasc) 10 MG tablet 11-14 00:00: 00 Yes [facility] lisinopril 40 MG tablet 11-14 00:00: 00 Yes [facility] Janumet 50-1000 MG tablet 11-14 00:00: 00 Yes [facility] lisinopril 40 MG tablet 11-14 00:00: 00 Yes [facility] Janumet 50-1000 MG tablet 11-14 00:00: 00 Yes [facility] amLODIPine (Norvasc) 10 MG tablet 11-14 00:00: 00 Yes [facility] cholestyram ine (Questran) 4 g packet 11-09 00:00: 00 Yes [facility] Ozempic, 0.25 or 0.5 MG/DOSE, 2 MG/1.5ML solution pen-injecto r 11-09 00:00: 00 Yes INJECT 0.25MG SUBCUTANEO USLY ONCE EVERY WEEK [facility] cholestyram ine (Questran) 4 g packet 11-09 00:00: 00 Yes [facility] Ozempic, 0.25 or 0.5 MG/DOSE, 2 MG/1.5ML solution pen-injecto r 11-09 00:00: 00 Yes INJECT 0.25MG SUBCUTANEO USLY ONCE EVERY WEEK [facility] Ozempic, 0.25 or 0.5 MG/DOSE, 2 MG/1.5ML solution pen-injecto r 11-09 00:00: 00 Yes INJECT 0.25MG SUBCUTANEO USLY ONCE EVERY WEEK [facility] cholestyram ine (Questran) 4 g packet 11-09 00:00: 00 Yes [facility] Pentasa 500 MG ER capsule 09-16 00:00: 00 Yes TAKE 4 CAPSULES BY MOUTH TWICE A DAY [facility] Pentasa 500 MG ER capsule 09-16 00:00: 00 Yes TAKE 4 CAPSULES BY MOUTH TWICE A DAY [facility] Pentasa 500 MG ER capsule 09-16 00:00: 00 Yes TAKE 4 CAPSULES BY MOUTH TWICE A DAY [facility] Vital Signs Vital Name Observation Time Observation Value Comments S ource Systolic blood pressure 2023-03-07 21:22:00 158 mm[Hg] [facility] Diastolic blood pressure 2023-03-07 21:22:00 84 mm[Hg] [facility] Heart rate 2023-03-07 21:22:00 98 /min [facility] Body temperature 2023-03-07 21:22:00 35.83 Susy [facility] Respiratory rate 2023-03-07 21:22:00 18 /min [facility] Body weight 2023-03-07 21:22:00 159.213 kg [facility] BMI 2023-03-07 21:22:00 48.95 kg/m2 [facility] Oxygen saturation in Arterial blood by Pulse oximetry 2023-03-07 21:22:00 98 /min [facility] Systolic blood pressure 2023-02-18 20:52:00 174 mm[Hg] [facility] Diastolic blood pressure 2023-02-18 20:52:00 91 mm[Hg] [facility] Heart rate 2023-02-18 20:52:00 93 /min [facility] Body temperature 2023-02-18 20:52:00 36.67 Susy [facility] Respiratory rate 2023-02-18 20:52:00 22 /min [facility] Body height 2023-02-18 20:52:00 180.3 cm [facility] Body weight 2023-02-18 20:52:00 158.124 kg [facility] BMI 2023-02-18 20:52:00 48.62 kg/m2 [facility] Oxygen saturation in Arterial blood by Pulse oximetry 2023-02-18 20:52:00 97 /min [facility] Procedures Procedure Date / Time Performed Performing Clinicia n Source WOUND/ASPIRATE OR ABSCESS CULTURE 2023-02-19 13:26:00 Sylvia Hill [facility] WOUND CULTURE 2023-02-19 13:26:00 Sylvia Hill [facility] ASSIGNMENT OF BENEFITS 2023-02-18 20:24:03 Docto r Unassigned, Coronita [facility] REFERRAL- REQUEST/RESPONSE 2023-02-05 05:01:00 Doctor Unassigned, Coronita [facility] EXT LOWER VENOUS DOPPLER BILAT 2020-12-09 14:00[facility] EXTREMITY ARTERY COMPLETE BILATERAL 2020-12-09 [facility] Start Date/Time End Date/Time Encounter Type Admission Type Attending Clinicians Care Facility Care Department Encounter ID Source 2023-03-07 16:30:00 2023-03-07 17:00:00 Office Visit Sylvia Hill [facility] [id number] [facility] 2023-03-07 16:30:00 2023-03-07 16:30:00 [id number] 2023-02-19 10:37:00 2023-02-19 23:59:00 Hospital Encounter Frankie Monae ON LICENSE OF [facility] 1..840.114 350.1.13.10 [id number] [id number] [facility] 2023-02-19 00:00:00 2023-02-19 23:59:00 Outpatient Jb FRANKIE MONAE [facility] [id number] [facility] 2023-02-18 15:30:00 2023-02-18 16:00:00 Office Visit Rizwan [facility] [place] 1..840.114 350.1.13.10 [id number] [id number] [facility] 2023-02-18 15:30:00 2023-02-18 15:30:00 Outpatient Jb [facility] [id number] [facility] 2023-02-18 00:00:00 2023-02-18 00:00:00 Orders Only Doctor Unassigned, Coronita [facility] 1.840.114 350.1.13.10 [id number] [id number] [facility] 2023-02-05 00:00:00 2023-02-05 00:00:00 Orders Only Doctor Unassigned, Coronita [facility] [id number] 350.1.13.10 4.2.7.2.686 [id number] [facility] 2021-05-31 10:30:00 2021-05-31 10:30:00 Outpatient [facility] [id number] [facility] 2020-12-16 08:53:53 2020-12-16 08:54:10 Education Karri Davis [facility] [id number] 350.1.13.58 [id number] [id number] 2020-12-16 08:53:53 2020-12-16 08:54:10 Education Karri Davis [facility] [id number] [id number] [facility] 2020-12-01 00:00:00 2020-12-01 00:00:00 EXT [facility] OP Karri Davis EXT [facility] LOCATION [id number] [id number] [id number] [facility] 2020-11-23 10:52:49 2020-11-23 12:14:06 Office Visit Karri Davis [facility] 1.2.840.114 350.1.13.58 [id number] [id number] 2020-11-23 10:52:49 2020-11-23 12:14:06 Office Visit Karri Davis [facility] [id number] [id number] [id number] [facility] 2020-06-24 15:00:00 2020-06-24 15:00:00 Outpatient ERIC NAILS [facility] [id number] [facility]
[2023-07-12 01:41] LABS: Hematocrit 34.7 % (39.6-49.0); Lymphocytes % 22.8 % (15.3-44.8); MCV 83.5 fL (80-100); MPV 8.1 fL (7.6-11.3); Platelets 335 thou/uL (152-406); RBC Red Blood Cell Count 4.16 M/uL (4.33-5.43)
[2023-07-12 01:54] LABS: Protime INR 1.04
[2023-07-12 02:02] LABS: Bilirubin Total 0.2 mg/dL (0.2-1.0); Potassium 4.3 mEq/L (3.5-5.1); Protein, Total 6.8 g/dL (6.4-8.2)
--- NOTE | 2023-07-12 04:18 | EDPHYS ---
Physician Documentation [facility] Name: Napoleon Saez Age: 58 yrs Sex: Male : 1965 Arrival Date: 07/12/2023 Time: 00:33 Bed 17 Private MD: ED Physician Vivek Brandt HPI: 07/12 02:35 This 58 yrs old Male presents to ER via Ambulatory with complaints of Wound Check. rt 02:35 Patient presents to the ED with report of wound to the left lower leg. Patient states rt that has been present for about 2 weeks, has not received any treatment for. He did try to do it debridement at home. States that it began to weep fluid. Patient stated that he wished to wait over the weekend to see how 1, however, his requested that he come in. Denies fever, chills, other acute complaints, symptoms are moderate severity, no other aggravating or elevating factors.. Historical: - Allergies: 01:11 No Known Allergies; pf1 - PMHx: 01:11 Crohn's Disease; diabetes mellitus; Hypertensive disorder; pf1 - PSHx: 01:12 bilateral knee; carpal tunnel; right achilles tendon; pf1 - Immunization history:: Adult Immunizations up to date, Client reports receiving the 2nd dose of the Covid vaccine, Moderna Last tetanus immunization: > 10 years ago Flu vaccine is not up to date. - Social history:: Smoking status: Patient denies any tobacco usage or history of. Patient/guardian denies using alcohol, street drugs. - Family history:: not pertinent. ROS: 02:35 Constitutional: Negative for fever, chills, and weight loss, Cardiovascular: Negative rt for chest pain, palpitations, and edema, Respiratory: Negative for shortness of breath, cough, wheezing, and pleuritic chest pain, Abdomen/GI: Negative for abdominal pain, nausea, vomiting, diarrhea, and constipation, Neuro: Negative for headache, weakness, numbness, tingling, and seizure, 02:35 Skin: Positive for Redness, wound, Exam: 02:35 ECG was reviewed by the Attending Physician. rt 02:35 Musculoskeletal/extremity: Chronic skin changes to bilateral lower extremities. There is an ulcerative wound on the left lower extremity laterally. Minimal leakage of serous fluid. It is not appreciably warm compared to the other leg, pulses, motor, sensation intact. Vital Signs: 00:59 BP 168 / 89; Pulse 92; Resp 16; Temp 97.7; Pulse Ox 98% on R/A; Weight 158.76 kg; pf1 Height 5 ft. 11 in. ; Pain 6/10; 01:55 BP 115 / 78; Pulse 91; Resp 18; Pulse Ox 99% on R/A; rv 03:00 BP 161 / 75; Pulse 91; Resp 18; Pulse Ox 96% on R/A; rv 04:25 BP 144 / 80; Pulse 89; Resp 18; Temp 98; Pulse Ox 96% on R/A; rv 00:59 Body Mass Index 48.81 (158.76 kg, 180.34 cm) pf1 00:59 Pain Scale: Adult pf1 [place] Coma Score: 01:52 Eye Response: spontaneous(4). Motor Response: obeys commands(6). Verbal Response: rv oriented(5). Total: 15. 04:26 Eye Response: spontaneous(4). Motor Response: obeys commands(6). Verbal Response: rv oriented(5). Total: 15. MDM: 01:13 Patient medically screened. rt 04:29 Differential diagnosis: cellulitis. Data reviewed: vital signs, nurses notes, lab test rt result(s), EKG. Consideration of Admission/Observation Escalation of care including admission/observation considered. Patient with apparent cellulitis with wound, is not meeting SIRS criteria but did have a mildly elevated lactate. For this reason, I did offer the patient admission to the hospital. Shared decision-making was employed, patient states that he wishes to go home. After fluids, IV antibiotics, the lactate did normalize. Patient states that he feels well, is comfortable with discharge. Will prescribe patient antibiotics. Patient to follow-up with his primary care for further management. Strict return precautions were given to the patient for any worsening condition.. Test considered but Not performed: Ultrasound Low suspicion for DVT clinically, ultrasound not indicated. Care significantly affected by the following chronic conditions: Diabetes, Hypertension. Counseling: I had a detailed discussion with the patient and/or guardian regarding the historical points, exam findings, and any diagnostic results supporting the discharge/admit diagnosis, lab results, the need for outpatient follow up, to return to the emergency department if symptoms worsen or persist or if there are any questions or concerns that arise at home. 07/12 01:21 Order name: Blood Culture Adult (2) rt 07/12 01:21 Order name: CBC with Diff; Complete Time: 02:05 rt 07/12 01:21 Order name: CMP; Complete Time: 02:05 rt 07/12 01:21 Order name: Lactate w/ 2H reflex if indic.; Complete Time: 02:05 rt 07/12 01:21 Order name: Protime (+inr); Complete Time: 02:05 rt 07/12 01:21 Order name: Ptt, Activated; Complete Time: 02:05 rt 07/12 02:18 Order name: Lactate w/ 2H reflex if indic.: Draw after fluids; Complete Time: 04:14 rt 07/12 01:21 Order name: EKG; Complete Time: :22 rt 07/12 01:21 Order name: Accucheck; Complete Time: :23 rt 07/12 01:21 Order name: Cardiac monitoring; Complete Time: 01:23 rt 07/12 01:21 Order name: EKG - Nurse/Tech; Complete Time: :23 rt 07/12 01:21 Order name: IV Saline Lock - Large Bore; Complete Time: : rt 07/12 01:21 Order name: Labs collected and sent; Complete Time: : rt 07/12 01:21 Order name: O2 Per Protocol; Complete Time: : rt 07/12 01:21 Order name: O2 Sat Monitoring; Complete Time: :23 rt 07/12 01:21 Order name: Vital Signs; Complete Time: 01:23 rt EC:35 Rate is 90 beats/min. Rhythm is regular, Normal Sinus Rhythm with No ectopy. Left axis rt deviation noted. MT interval is normal. QRS interval is normal. QT interval is normal. No Q waves. T waves are Normal. No ST changes noted. Administered Medications: 02:31 Drug: NS 0.9% IV 1000 ml IV at 1 bolus Per protocol; 1000 mL bolus Route: IV; Rate: 1 rv bolus; Site: right hand; 04:28 Follow up: IV Status: Completed infusion; IV Intake: 1000ml rv 02:31 Drug: Clindamycin IVPB 600 mg IVPB once over 30 mins; (mix in 50 mL) Route: IVPB; rv Infused Over: 30 mins; Site: right hand; 04:27 Follow up: Response: No adverse reaction; IV Status: Completed infusion; IV Intake: 50mlrv 02:31 Drug: Mupirocin Topical Ointment 2 % 1 application Topical once Route: Topical; Site: rv wound; 04:28 Follow up: Response: No adverse reaction rv Disposition Summary: 07/12/23 04:17 Discharge Ordered Notes: Location: Home rt Problem: new rt Symptoms: have improved rt Condition: Stable rt Diagnosis - Cellulitis left lower extremity rt Followup: rt - With: Private Physician - When: 2 - 3 days - Reason: Followup: rt - With: Emergency Department - When: As needed - Reason: Worsening of condition Discharge Instructions: - Discharge Summary Sheet rt - Cellulitis, Adult rt Forms: - Medication Reconciliation Form rt - Thank You Letter rt - Antibiotic Education rt - Prescription Opioid Use rt - Patient Portal Instructions rt - Leadership Thank You Letter rt Prescriptions: - mupirocin 2 % Topical ointment - apply 1 application TOPICAL route 3 times per day; 1 Each; Refills: 0, Product rt Selection Permitted - Clindamycin HCl 300 mg Oral Capsule - take 1 capsule ORAL route every 6 hours for 10 days; 40 capsule; Refills: 0, rt Product Selection Permitted Signatures: Dispatcher [employer] Michael Silverman RN RN rv Vivek Brandt MD MD rt Yanely Grimaldo RN RN pf1
--- NOTE | 2023-07-12 04:18 | ER ---
Nurse's Notes [facility] Name: Napoleon Saez Age: 58 yrs Sex: Male : 1965 Arrival Date: 07/12/2023 Time: 00:33 Bed 17 Private MD: Diagnosis: Cellulitis left lower extremity Presentation: 07/12 00:59 Chief complaint: Patient states: wound to LLE,onset 10-14 days with worsen pain of 6 to pf1 LLE with redness,onset 1 day with yellow drainage. Patient stated did an debridement to LLE 3 days ago. Coronavirus screen: Vaccine status: Patient reports receiving the 2nd dose of the covid vaccine. Client denies travel out of the [place] in the last 14 days. At this time, the client does not indicate any symptoms associated with coronavirus-19. Ebola Screen: Patient negative for fever greater than or equal to 101.5 degrees Fahrenheit, and additional compatible Ebola Virus Disease symptoms. Initial Sepsis Screen: Does the patient meet any 2 criteria? HR > 90 bpm. No. Patient's initial sepsis screen is negative. Does the patient have a suspected source of infection? Yes: Skin breakdown/wound. Risk Assessment: Do you want to hurt yourself or someone else? Patient reports no desire to harm self or others. 00:59 Method Of Arrival: Ambulatory pf1 00:59 Acuity: [place] 3 pf1 01:54 Onset of symptoms was July 12, 2023. rv Historical: - Allergies: 01:11 No Known Allergies; pf1 - PMHx: 01:11 Crohn's Disease; diabetes mellitus; Hypertensive disorder; pf1 - PSHx: 01:12 bilateral knee; carpal tunnel; right achilles tendon; pf1 - Immunization history:: Adult Immunizations up to date, Client reports receiving the 2nd dose of the Covid vaccine, Moderna Last tetanus immunization: > 10 years ago Flu vaccine is not up to date. - Social history:: Smoking status: Patient denies any tobacco usage or history of. Patient/guardian denies using alcohol, street drugs. - Family history:: not pertinent. Screenin:52 [facility] ED Fall Risk Assessment (Adult) History of falling in the last 3 months, rv including since admission No falls in past 3 months (0 pts) Score/Fall Risk Level 0 - 2 = Low Risk Oriented to surroundings, Maintained a safe environment, Educated pt \T\ family on fall prevention, incl call for assistance when getting out of bed, Assessed \T\ reinforced patient's understanding of fall precautions. Abuse screen: Denies threats or abuse. Denies injuries from another. Nutritional screening: No deficits noted. Tuberculosis screening: No symptoms or risk factors identified. Assessment: 01:51 General: Appears comfortable, Behavior is calm, cooperative. Pain: Complains of pain in rv left leg. Neuro: Level of Consciousness is awake, alert, obeys commands, Oriented to person, place, time, situation. Cardiovascular: Capillary refill < 3 seconds Patient's skin is warm and dry. Respiratory: Airway is patent Respiratory effort is even, unlabored. GI: No signs and/or symptoms were reported involving the gastrointestinal system. : No signs and/or symptoms were reported regarding the genitourinary system. Derm: Skin is intact. Musculoskeletal: Swelling present in left foot, left lo and anterior aspect of left ankle. Vital Signs: 00:59 BP 168 / 89; Pulse 92; Resp 16; Temp 97.7; Pulse Ox 98% on R/A; Weight 158.76 kg; pf1 Height 5 ft. 11 in. ; Pain 6/10; 01:55 BP 115 / 78; Pulse 91; Resp 18; Pulse Ox 99% on R/A; rv 03:00 BP 161 / 75; Pulse 91; Resp 18; Pulse Ox 96% on R/A; rv 04:25 BP 144 / 80; Pulse 89; Resp 18; Temp 98; Pulse Ox 96% on R/A; rv 00:59 Body Mass Index 48.81 (158.76 kg, 180.34 cm) pf1 00:59 Pain Scale: Adult pf1 [place] Coma Score: 01:52 Eye Response: spontaneous(4). Motor Response: obeys commands(6). Verbal Response: rv oriented(5). Total: 15. 04:26 Eye Response: spontaneous(4). Motor Response: obeys commands(6). Verbal Response: rv oriented(5). Total: 15. ED Course: 00:34 Patient arrived in ED. [email or web address] 00:35 Vivek Brandt MD is Attending Physician. rt 01:09 Triage completed. pf1 01:23 Júnior, Michael, RN is Primary Nurse. rv 01:30 No provider procedures requiring assistance completed. Inserted saline lock: 20 gauge rv in right hand, using aseptic technique. Blood collected. 01:45 Inserted saline lock: 20 gauge in left forearm, using aseptic technique. Blood rv collected. 01:51 Arm band placed on right wrist. rv 01:52 Patient has correct armband on for positive identification. Client placed on continuous rv cardiac and pulse oximetry monitoring. NIBP monitoring applied. business office assistant on. 04:27 IV discontinued, intact, bleeding controlled, No redness/swelling at site. Pressure rv dressing applied. Administered Medications: 02:31 Drug: NS 0.9% IV 1000 ml IV at 1 bolus Per protocol; 1000 mL bolus Route: IV; Rate: 1 rv bolus; Site: right hand; 04:28 Follow up: IV Status: Completed infusion; IV Intake: 1000ml rv 02:31 Drug: Clindamycin IVPB 600 mg IVPB once over 30 mins; (mix in 50 mL) Route: IVPB; rv Infused Over: 30 mins; Site: right hand; 04:27 Follow up: Response: No adverse reaction; IV Status: Completed infusion; IV Intake: 50mlrv 02:31 Drug: Mupirocin Topical Ointment 2 % 1 application Topical once Route: Topical; Site: rv wound; 04:28 Follow up: Response: No adverse reaction rv Medication: 01:52 VIS not applicable for this client. rv Intake: 04:27 IV: 50ml; Total: 50ml. rv 04:28 IV: 1000ml; Total: 1050ml. rv Outcome: 04:17 Discharge ordered by MD. rt 04:27 Discharged to home ambulatory, with family, rv 04:27 Condition: good 04:27 Discharge instructions given to patient, family, Instructed on discharge instructions, follow up and referral plans. medication usage, wound care, Demonstrated understanding of instructions, follow-up care, medications, wound care, Prescriptions given X 2, 04:28 Patient left the ED. rv Signatures: Michael Callejas, JULIÁN RN rv Rossana Huang [email or web address] Vivek Brandt MD MD rt Yanely Grimaldo RN RN pf1
[2023-07-12 04:50] VITALS: BP 144/80; TEMP 98; O2SAT 96
--- NOTE | 2023-07-12 15:01 | EKG ---
Test Date: 2023-07-12 Test Time: 01:45:32 Procedure Rn: RV MEASUREMENT RESULTS: Intervals: Rate: 90 TX: 202 QRSD: 100 QT: 354 QTc: 433 [place]: P: 30 TX: 202 QRS: -41 T: 30 INTERPRETIVE STATEMENTS: Normal sinus rhythm Left axis deviation Abnormal ECG No previous ECG available for comparison Electronically Signed On 07-12-23 14:59:31 ACTUARIAL MANAGER by Ernesto Wray
== END ==
LOC: ER 00:33
DX: L03.116 Cellulitis of left lower limb (principal); E11.9 Type 2 diabetes mellitus without complications; I10 Essential (primary) hypertension
CPT/HCPCS: 96365; 93005; 87040 ×2; 85025; 36415; 85610; 83605 ×2; 85730; 80053; 99285; 96366; J7030